=== PATIENT | female | born 1975 | race Caucasian/White ===

== ENCOUNTER → 2018-09-02 | Outpatient (CLI) | payer OTHER ==
--- NOTE | 2018-09-02 18:02 | REP ---
Chest two views HISTORY: Cough Comparison: 05/25/2014 The lungs are clear. The heart is normal in size. The pulmonary vasculature is normal in appearance. The bony structure is intact. IMPRESSION: No acute disease. Electronically Signed by Aryan Robins MD 09/02/2018 05:54 P
== END ==
LOC: M LRY 17:37
PROVIDERS: ATTEND Nurse Practitioner Family
DX: R05 Cough (principal)